=== PATIENT | female | born 2000 | race Caucasian/White ===

== ENCOUNTER → 2018-03-15 | Outpatient (CLI) | payer OTHER ==
[~2018-03-15] MED LIST: ALBU90OI INH; ALBU90OI61 INH; AMOX500 PO; AMOXICILLIN; AZIT250 PO; Augmentin 500-1 EACH PO; BIRTH CONTROL PILLS; Bactroban22 GM TOP; CODACE30 PO; CODACEE120 PO; IBUP800 PO; NEOPOLHCSU OT; Nasonex17 GM; PERM5TC TOP; PRED10 PO; PRED20 PO; SPACE CHAMBER1 EACH MC
== END | disposition home or self-care (01) ==
LOC: LAB EV 12:15 → LAB SHORT 12:15
DX: J06.9 Acute upper respiratory infection, unspecified (principal)
CPT/HCPCS: 87070

== ENCOUNTER → 2019-09-07 | Outpatient (CLI) | payer OTHER ==
[2019-09-08 07:10] LABS: HIV SCREEN 4TH GENERATION WRFX Non Reactive (Non Reactive)
[2019-09-08 08:10] LABS: HBSAG SCREEN Negative (Negative); HCV ANTIBODY <0.1 (0.0-0.9)
== END | disposition home or self-care (01) ==
LOC: LAB EV 17:02 → LAB SHORT 17:02
PROVIDERS: Family Medicine
DX: Z20.9 Contact with and (suspected) exposure to unspecified communicable disease (principal)
CPT/HCPCS: 84460; 86317; 86803; 87340; 87389

== ENCOUNTER → 2019-10-23 | Outpatient (CLI) | payer OTHER | LOC: LAB SHORT 12:27 → LAB 12:27 | PROVIDERS: Registered Nurse Community Health | DX: Z12.4 Encounter for screening for malignant neoplasm of cervix (principal) | CPT/HCPCS: G0123 ==

== ENCOUNTER → 2020-12-09 | Outpatient (CLI) | payer OTHER ==
[2020-12-09 13:52] LABS: Appearance, Urine Clear (Clear); Bilirubin, Urine Neg (Neg); Blood, Urine 2+ (Neg); Color, Urine Yellow (P-Yellow); Glucose Qualitative, Urine Neg (Neg); Ketones, Urine Neg (Neg); Leukocyte Esterase, Urine 2+ (Neg); Nitrite, Urine Neg (Neg); Protein, Urine 1+ (Neg); Urobilinogen, Urine NORM (Normal)
[2020-12-09 14:12] LABS: Bacteria Mod /hpf; Squamous Epithelial Cells Few /hpf (Few)
[2020-12-14 07:09] LABS: HSV-1 DNA Positive (Negative); HSV-2 DNA Negative (Negative)
== END | disposition home or self-care (01) ==
LOC: LAB 10:20 → LAB SHORT 10:20
PROVIDERS: Student in an Organized Health Care Education/Training Program
DX: N39.0 Urinary tract infection, site not specified (principal); L98.499 Non-pressure chronic ulcer of skin of other sites with unspecified severity
CPT/HCPCS: 81001; 87086

== ENCOUNTER → 2022-10-27 | Outpatient (CLI) | payer OTHER | END | disposition home or self-care (01) | LOC: LAB 13:22 → LAB SHORT 13:22 | PROVIDERS: Registered Nurse Community Health | DX: Z12.4 Encounter for screening for malignant neoplasm of cervix (principal) | CPT/HCPCS: G0145 ==

== ENCOUNTER → 2023-12-10 | Outpatient (CLI) | payer OTHER ==
[2023-12-10 15:58] LABS: Candida Group, PCR NOT DETECTED (NOT DETECT); Candida glabrata-krusei, PCR NOT DETECTED (NOT DETECT)
[2023-12-10 15:59] LABS: Bacterial Vaginosis PCR Positive (NEGATIVE)
[2023-12-13 22:00] LABS: APTIMA MEDIA TYPE Unisex Swab; C. TRACHOMATIS BY TMA Negative (Negative); N. GONORRHOEAE BY TMA Negative (Negative); SPECIMEN SOURCE Vaginal
== END | disposition home or self-care (01) ==
LOC: LAB SHORT 10:27 → LAB 10:27
PROVIDERS: Advanced Practice Midwife
DX: Z11.3 Encounter for screening for infections with a predominantly sexual mode of transmission (principal); O26.899 Other specified pregnancy related conditions, unspecified trimester; R10.2 Pelvic and perineal pain
CPT/HCPCS: 87481; 87491; 87591; 87661; 87801

== ENCOUNTER → 2023-12-30 | Outpatient (CLI) | payer OTHER ==
[2023-12-30 12:54] LABS: Candida Group, PCR NOT DETECTED (NOT DETECT); Candida glabrata-krusei, PCR NOT DETECTED (NOT DETECT)
[2023-12-30 13:33] LABS: Bacterial Vaginosis PCR Positive (NEGATIVE)
== END | disposition home or self-care (01) ==
LOC: LAB 10:50 → LAB SHORT 10:50
PROVIDERS: Advanced Practice Midwife
DX: O99.891 Other specified diseases and conditions complicating pregnancy (principal); R10.2 Pelvic and perineal pain
CPT/HCPCS: 87481; 87661; 87801

== ENCOUNTER → 2024-01-25 | Outpatient (CLI) | payer OTHER ==
[2024-01-25 17:13] LABS: Candida Group, PCR NOT DETECTED (NOT DETECT); Candida glabrata-krusei, PCR NOT DETECTED (NOT DETECT)
[2024-01-25 17:14] LABS: Bacterial Vaginosis PCR Positive (NEGATIVE)
== END | disposition home or self-care (01) ==
LOC: LAB SHORT 13:57 → LAB 13:57
PROVIDERS: Advanced Practice Midwife
DX: O23.599 Infection of other part of genital tract in pregnancy, unspecified trimester (principal); B96.89 Other specified bacterial agents as the cause of diseases classified elsewhere
CPT/HCPCS: 87481; 87661; 87801

== ENCOUNTER → 2024-03-06 | Outpatient (CLI) | payer OTHER ==
[2024-03-06 20:20] LABS: Bacterial Vaginosis PCR Negative (NEGATIVE); Candida Group, PCR NOT DETECTED (NOT DETECT); Candida glabrata-krusei, PCR NOT DETECTED (NOT DETECT)
== END ==
LOC: LAB 16:27 → LAB SHORT 16:27
PROVIDERS: Advanced Practice Midwife
DX: O23.599 Infection of other part of genital tract in pregnancy, unspecified trimester (principal); B96.89 Other specified bacterial agents as the cause of diseases classified elsewhere
CPT/HCPCS: 81515

== ENCOUNTER → 2024-05-18 | Outpatient (CLI) | payer OTHER | LOC: LAB 13:01 → LAB SHORT 13:01 | DX: O09.90 Supervision of high risk pregnancy, unspecified, unspecified trimester (principal); Z3A.00 Weeks of gestation of pregnancy not specified | CPT/HCPCS: 87081; 87150 ==

== ENCOUNTER 2024-06-10 08:46 | Inpatient (IN) | payer OTHER ==
[~2024-06-10] VITALS: Ht 167.6 cm; Wt 95.2 kg
[2024-06-10] VITALS (10 sets, daily range): BP systolic 118–147; BP diastolic 62–88
[2024-06-10] MEDS ORDERED: Calcium Carbonate 500 MG Tab Chew PO SCH (09:05)
[2024-06-10] MEDS ORDERED: OXYTOCIN/RINGER'S LACTATE 500 ML IV PRN (09:05)
[2024-06-10] MEDS ORDERED: Lactated Ringer's 1,000 ML IV PRN (09:05)
[2024-06-10] MEDS ORDERED: Ondansetron HCl 2 MG / ML 2ML Vial IV PRN (09:05)
[2024-06-10] MEDS ORDERED: Carboprost Tromethamine 250 MCG/ML 1ML Amp IM PRN ×2 (09:05→13:30)
[2024-06-10] MEDS ORDERED: Acetaminophen 500 MG Tab PO PRN (09:05)
[2024-06-10] MEDS ORDERED: Misoprostol 200 MCG Tab PR PRN ×2 (09:05→13:35)
[2024-06-10] MEDS ORDERED: Methylergonovine Maleate 0.2MG / ML 1ML Amp IM PRN ×2 (09:05→13:35)
[2024-06-10] MEDS ORDERED: Oxytocin 10 Unit / ML Vial IM PRN (09:05)
[2024-06-10] MEDS ORDERED: Tranexamic Acid 100 ML IV SCH (09:05)
[2024-06-10] MEDS ORDERED: Misoprostol 200 MCG Tab BC PRN (09:05)
[2024-06-10 09:18] LABS: BASOPHILS ABSOLUTE AUTO 0.03 K/mm3 (0.00-0.23); BASOPHILS PERCENT AUTO 0 % (0-2); EOSINOPHILS ABSOLUTE AUTO 0.15 K/mm3 (0.00-0.68); EOSINOPHILS PERCENT AUTO 1 % (0-6); Hematocrit 35.9 % (33.0-51.0); Hemoglobin 12.5 g/dL (11.5-16.0); IMMATURE GRAN PERCENT AUTO 1 % (0-1); LYMPHOCYTES ABSOLUTE AUTO 3.12 K/mm3 (0.84-5.20); LYMPHOCYTES PERCENT AUTO 26 % (21-46); MONOCYTES ABSOLUTE AUTO 0.69 K/mm3 (0.16-1.47); MONOCYTES PERCENT AUTO 6 % (4-13); Mean Corpuscular HGB 29.9 pg (26.0-34.0); Mean Corpuscular HGB Conc 34.8 g/dL (31.5-36.5); Mean Corpuscular Volume 86 fL (80-100); NEUTROPHILS ABSOLUTE AUTO 8.12 K/mm3 (1.96-9.15); NEUTROPHILS PERCENT AUTO 67 % (41-73); Platelet Count 231 K/mm3 (150-400); RDW Coefficient Variation 13.5 % (11.7-14.2); RDW Standard Deviation 42.4 fL (35.1-46.3); Red Blood Cell Count 4.18 M/mm3 (3.80-5.20); White Blood Cell Count 12.21 K/mm3 (4.00-11.30)
[2024-06-10] MEDS ORDERED: PRENATAL TABLE1 EAC2 (10:14)
[2024-06-10] MEDS ORDERED: Ketorolac Tromethamine 30mg Vial IV PRN (13:30)
[2024-06-10] MEDS ORDERED: Witch Hazel/Glycerin PADS TOP PRN (13:30)
[2024-06-10] MEDS ORDERED: Ibuprofen 400 MG Tab PO PRN (13:30)
[2024-06-10] MEDS ORDERED: Benzocaine Topical Anesthetic Spray 60GM TOP PRN (13:30)
[2024-06-10] MEDS ORDERED: Rho(D) Immune Globulin 300 MCG / SYR IM ONE (13:30)
[2024-06-10] MEDS ORDERED: Measles/Mumps/Rubella Vaccine 0.5 ML Vial SC ONE (13:35)
[2024-06-10] MEDS ORDERED: Lanolin Cream TOP PRN (13:35)
[2024-06-10] MEDS ORDERED: OXYTOCIN/RINGER'S LACTATE 500 ML IV SCH (13:35)
[2024-06-10] MEDS ORDERED: Lactated Ringer's 1,000 ML IV SCH (13:35)
--- NOTE | 2024-06-10 17:52 | NUR ---
ASSUMED CARE AT 1740 FROM LINDA KHANNA
--- NOTE | 2024-06-11 00:04 | NUR ---
PT TEMP 100.5 AXI, PT STATES SHE IS HOT FROM ROOM TEMP NEEDING TO BE HIGHER FOR BABY AND SWEATY UNDER BLANKETS. ORAL TEMP CHECKED 98.1.
[2024-06-11 04:34] VITALS: BP 121/75
[2024-06-11 06:19] LABS: BASOPHILS ABSOLUTE AUTO 0.02 K/mm3 (0.00-0.23); BASOPHILS PERCENT AUTO 0 % (0-2); EOSINOPHILS ABSOLUTE AUTO 0.05 K/mm3 (0.00-0.68); EOSINOPHILS PERCENT AUTO 0 % (0-6); Hematocrit 28.3 % (33.0-51.0); Hemoglobin 9.4 g/dL (11.5-16.0); IMMATURE GRAN ABSOLUTE AUTO 0.11 K/mm3 (0.00-0.10); IMMATURE GRAN PERCENT AUTO 1 % (0-1); LYMPHOCYTES ABSOLUTE AUTO 2.65 K/mm3 (0.84-5.20); LYMPHOCYTES PERCENT AUTO 17 % (21-46); MONOCYTES ABSOLUTE AUTO 1.18 K/mm3 (0.16-1.47); MONOCYTES PERCENT AUTO 8 % (4-13); Mean Corpuscular HGB 29.5 pg (26.0-34.0); Mean Corpuscular HGB Conc 33.2 g/dL (31.5-36.5); Mean Corpuscular Volume 89 fL (80-100); Mean Platelet Volume 10.8 fL (9.1-12.4); NEUTROPHILS ABSOLUTE AUTO 11.64 K/mm3 (1.96-9.15); NEUTROPHILS PERCENT AUTO 75 % (41-73); Platelet Count 177 K/mm3 (150-400); RDW Coefficient Variation 13.9 % (11.7-14.2); RDW Standard Deviation 44.9 fL (35.1-46.3); Red Blood Cell Count 3.19 M/mm3 (3.80-5.20); White Blood Cell Count 15.65 K/mm3 (4.00-11.30)
--- NOTE | 2024-06-11 06:57 | NUR ---
PT WAS UP MOST THE NIGHT WITH BABYS CBGS AND FEEDING SCHEDULE. VERY ATTENTIVE TO [place] NEEDS. EDUCATION AND ASSISTANCE PROVIDED THIS SHIFT. DENIES NEED FOR ANY PHARMOCOLOGICAL PAIN RELIEF. APPLIED ICE DIAPER THIS MORNING FOR DISCOMFORT.
[2024-06-11 07:42] VITALS: BP 131/74
[2024-06-11] MEDS ORDERED: Prenatal Vit/FE Fumarate/FA 1 Tab PO SCH (09:00)
[2024-06-11] MEDS ORDERED: Sod Ferric Gluc Complx/Sucrose 125 MG in NS 100 ML IV SCH (12:00)
[2024-06-11 12:07] VITALS: BP 124/67
[2024-06-11 15:52] VITALS: BP 138/82
[2024-06-11 15:53] VITALS: BP 129/76
--- NOTE | 2024-06-11 16:06 | NUR ---
1540 discharge instructions given, pt deneis any further question at this time. is going home supplementing with feeds q2-3 hrs. will return tomorrow at 1030 for jaundice recheck, hugs removed/bands matched. pt walked out to car with vital wnl
== END 2024-06-11 15:58 | disposition home or self-care (01) | DRG 806 ==
LOC: OBS 08:46 → BC 08:46 → OBS 08:56 → BC 08:59
PROVIDERS: Obstetrics & Gynecology; ADMIT Advanced Practice Midwife
PROC: 10E0XZZ Delivery of Products of Conception, External Approach (ICD-10-PCS; principal; 2024-06-10)
PROC: 0HQ9XZZ Repair Perineum Skin, External Approach (ICD-10-PCS; 2024-06-10)
DX: O99.344 Other mental disorders complicating childbirth (principal); O72.1 Other immediate postpartum hemorrhage; Z37.0 Single live birth; F41.8 Other specified anxiety disorders; Z3A.39 39 weeks gestation of pregnancy; Z90.49 Acquired absence of other specified parts of digestive tract; O99.314 Alcohol use complicating childbirth; F10.20 Alcohol dependence, uncomplicated; Z91.040 Latex allergy status; Z91.018 Allergy to other foods; O70.0 First degree perineal laceration during delivery; O77.0 Labor and delivery complicated by meconium in amniotic fluid; O69.81X0 Labor and delivery complicated by cord around neck, without compression, not applicable or unspecified
CPT/HCPCS: 36415; 59025; 85025; 86850; 86900; 86901; 99214; A9270; J2916